=== PATIENT | female | born 1945 | race Caucasian/White ===

== ENCOUNTER 2017-08-28 06:24 | Day surgery (SDC) | payer MEDICARE, MEDICAID ==
[~2017-08-28 06:24] MED LIST: Buffered Lidocaine 0.9% SYRIN* 5 ML/SYR SYRINGE INTRADERM ONE
[2017-08-28] MEDS ORDERED: ceFAZolin 2 GM PREMIX (*) 2 GM/50 ML BAG IVPB ONE (06:30)
[2017-08-28] MEDS ORDERED: Bupivacaine 0.25% SDV* 30 ML ONE (07:20)
[2017-08-28] MEDS ORDERED: Midazolam* 1 MG/ML 2 ML VIAL (2 MG) ONE (07:24)
[2017-08-28] MEDS ORDERED: fentaNYL* 50 MCG/ML 2 ML VIAL (100 MCG VIAL) ONE (07:24)
[2017-08-28] MEDS ORDERED: Lidocaine 2% PF * 5 ML VIAL ONE (07:40)
[2017-08-28] MEDS ORDERED: Propofol* 10 MG/ML 20 ML BTL IV PUSH ONE (07:40)
[2017-08-28] MEDS ORDERED: Naloxone* 0.4 MG/ML 1 ML VIAL IV PRN (08:19)
[2017-08-28 08:46] VITALS: BP 128/66
== END 2017-08-28 09:01 | disposition home or self-care (01) ==
LOC: OREAST 06:24
PROVIDERS: ATTEND Plastic Surgery
DX: M65.322 Trigger finger, left index finger (principal); E11.9 Type 2 diabetes mellitus without complications; Z79.4 Long term (current) use of insulin; Z79.84 Long term (current) use of oral hypoglycemic drugs; I10 Essential (primary) hypertension; E78.5 Hyperlipidemia, unspecified; I25.2 Old myocardial infarction; I25.10 Atherosclerotic heart disease of native coronary artery without angina pectoris; J44.9 Chronic obstructive pulmonary disease, unspecified; Z86.718 Personal history of other venous thrombosis and embolism; Z86.711 Personal history of pulmonary embolism; Z79.82 Long term (current) use of aspirin; Z95.5 Presence of coronary angioplasty implant and graft; D64.9 Anemia, unspecified
CPT/HCPCS: J0690; J2250; J2704; J3010

== ENCOUNTER 2023-06-02 09:40 | Inpatient (IN) ==
[2023-06-02 10:11] LABS: ABS Eosinophils 0.1 10^3/uL (0.0-0.5); ABS Lymphocytes 2.1 10^3/uL (1.0-4.8); ABS Monocytes 0.6 10^3/uL (0.0-0.9); ABS Neutrophils 3.9 10^3/uL (1.5-7.6); ABS Nucleated RBC 0.02 10^3/ul; Eosinophil % 1.8 %; Hematocrit 39.9 % (35-45); Hemoglobin 13.4 g/dL (11.5-14.3); Lymphocyte % 30.3 %; Mean Corpuscular Hemoglobin 29.7 pg (27-33); Mean Corpuscular Hgb Conc 33.6 g/dL (31-36); Mean Corpuscular Volume 88.4 fL (80-97); Mean Platelet Volume 7.7 fL (7.5-11.2); Nucleated Red Blood Cells % 0.2 %/100WBC (0.0-0.8); Platelet Count 226 10^3/uL (150-450); Red Blood Count 4.51 10^6/uL (3.63-4.92); White Blood Count 6.8 10^3/uL (3.8-11.8)
[2023-06-02 10:35] LABS: ALT 15 U/L (7-52); Albumin 4.1 g/dL (3.2-5.2); Albumin/Globulin Ratio 1.2 (1-3); Alkaline Phosphatase 108 U/L (35-149); Anion Gap 13 mmol/L (2-16); Blood Urea Nitrogen 27 mg/dL (6-24); CO2 Carbon Dioxide 24 mmol/L (22-32); Calcium 9.5 mg/dL (8.6-10.3); Chloride 101 mmol/L (101-111); Creatinine, Serum 1.41 mg/dL (0.51-0.95); Globulin 3.5 g/dL (2-4); Glucose 174 mg/dL (70-100); High Sens Troponin Baseline < 3 pg/mL (<15); Sodium 138 mmol/L (135-145); Total Bilirubin 0.6 mg/dL (0.2-1.0); Total Protein 7.6 g/dL (6.4-8.9); eGFR CKD-EPI 38.4 (>60)
[2023-06-02] MEDS ORDERED: Ondansetron 4 mg VIAL 2 MG/ML 2 ml VIAL IV ONE (11:17)
[2023-06-02] MEDS ORDERED: Acetaminophen IV 1 GM/100ML 1,000 MG/100 ML BAG IV ONE ×2 (11:17→19:17)
[2023-06-02] MEDS ORDERED: NS 0.9% 500 ml BAG 500 ML IV ONE (11:17)
[2023-06-02 11:49] LABS: Potassium Redraw 4.1 mmol/L (3.5-5.0)
[2023-06-02] MEDS ORDERED: Iodixanol (CONTRAST) 320 MG/ML 100 ML SDV IV ONE (11:49)
[2023-06-02 11:54] LABS: INR 1.14 (0.83-1.13)
[2023-06-02] MEDS ORDERED: Piperacillin/Tazobac 3.375 BAG 3.375 GM/100 ML BAG IV ONE (20:28)
[2023-06-02] MEDS ORDERED: Ondansetron 4 mg VIAL 2 MG/ML 2 ml VIAL IV PRN (21:23)
[2023-06-02] MEDS ORDERED: Potassium Chlor 20 meq TAB.ER PO PRN (21:28)
[2023-06-02] MEDS ORDERED: Lactated Ringers 1000 ml BAG 1,000 ML IV ONE (21:34)
[2023-06-02] MEDS ORDERED: Enoxaparin 30 MG/0.3 ML SYR SUBCUT SCH (22:00)
[2023-06-02] MEDS ORDERED: Zosyn per Pharmacy NOTE FOLLOW UP SCH (22:00)
[2023-06-02] MEDS: Enoxaparin 30 MG/0.3 ML SYR SUBCUT SCH (22:02)
[2023-06-02] MEDS ORDERED: Dextrose 50% Syringe 50 ml 25 GM/50 ML SYRINGE IV PUSH PRN (22:23)
[2023-06-03] MEDS ORDERED: ZOSYN 3.375 GM Q8H per EXTENDED INFUSION IV SCH (01:00)
[2023-06-03] MEDS: ZOSYN 3.375 GM Q8H per EXTENDED INFUSION IV SCH ×3 (01:24→16:56)
[2023-06-03 07:50] LABS: ABS Eosinophils 0.2 10^3/uL (0.0-0.5); ABS Monocytes 0.3 10^3/uL (0.0-0.9); ABS Neutrophils 3.1 10^3/uL (1.5-7.6); Eosinophil % 3.9 %; Hematocrit 38.8 % (35-45); Hemoglobin 12.9 g/dL (11.5-14.3); Mean Corpuscular Hemoglobin 29.7 pg (27-33); Mean Corpuscular Hgb Conc 33.2 g/dL (31-36); Mean Corpuscular Volume 89.5 fL (80-97); Nucleated Red Blood Cells % 0.1 %/100WBC (0.0-0.8); Platelet Count 173 10^3/uL (150-450); Red Blood Count 4.34 10^6/uL (3.63-4.92); White Blood Count 4.6 10^3/uL (3.8-11.8)
[2023-06-03 08:10] LABS: Creatinine, Serum 1.45 mg/dL (0.51-0.95); Magnesium 1.7 mg/dL (1.9-2.7); Potassium 4.5 mmol/L (3.5-5.0); eGFR CKD-EPI 37.2 (>60)
[2023-06-03] MEDS: Cholecalciferol (VIT D3) 1,000 unit TAB PO SCH (08:46)
[2023-06-03] MEDS: Enoxaparin 30 MG/0.3 ML SYR SUBCUT SCH (20:40)
[2023-06-04] MEDS: ZOSYN 3.375 GM Q8H per EXTENDED INFUSION IV SCH ×3 (02:17→17:39)
[2023-06-04 07:29] LABS: ABS Basophils 0.1 10^3/uL (0.0-0.1); ABS Eosinophils 0.2 10^3/uL (0.0-0.5); ABS Lymphocytes 1.2 10^3/uL (1.0-4.8); ABS Monocytes 0.3 10^3/uL (0.0-0.9); ABS Neutrophils 1.8 10^3/uL (1.5-7.6); ABS Nucleated RBC 0.01 10^3/ul; Hemoglobin 12.1 g/dL (11.5-14.3); Lymphocyte % 32.6 %; Mean Corpuscular Hemoglobin 29.9 pg (27-33); Mean Corpuscular Hgb Conc 33.7 g/dL (31-36); Mean Corpuscular Volume 88.7 fL (80-97); Mean Platelet Volume 7.4 fL (7.5-11.2); Nucleated Red Blood Cells % 0.2 %/100WBC (0.0-0.8); Platelet Count 160 10^3/uL (150-450); Red Blood Count 4.06 10^6/uL (3.63-4.92); Red Cell Distribution Width 13.9 % (12-17); White Blood Count 3.7 10^3/uL (3.8-11.8)
[2023-06-04 07:46] LABS: Calcium 8.8 mg/dL (8.6-10.3); Creatinine, Serum 1.47 mg/dL (0.51-0.95); Magnesium 1.7 mg/dL (1.9-2.7); Phosphorus 3.7 mg/dL (2.5-5.0); Potassium 3.8 mmol/L (3.5-5.0); eGFR CKD-EPI 36.5 (>60)
[2023-06-04] MEDS: Cholecalciferol (VIT D3) 1,000 unit TAB PO SCH (08:09)
[2023-06-04] MEDS ORDERED: Magnesium Sulfate IV 1GM/100ML 1 GM/100 ML BAG IV ONE (10:26)
[2023-06-04] MEDS: Enoxaparin 30 MG/0.3 ML SYR SUBCUT SCH (21:58)
[2023-06-05] MEDS: ZOSYN 3.375 GM Q8H per EXTENDED INFUSION IV SCH ×2 (02:43→13:13)
[2023-06-05] MEDS ORDERED: Lactated Ringers 1000 ml BAG 1,000 ML IV SCH (08:00)
[2023-06-05] MEDS: Cholecalciferol (VIT D3) 1,000 unit TAB PO SCH (09:06)
[2023-06-05 11:00] VITALS: BP 139/74
[2023-06-05] MEDS ORDERED: Amoxicillin/Clavul 875/125 TAB (Augmentin 875 tab) PO ONE (11:47)
== END 2023-06-05 13:20 | disposition home or self-care (01) | DRG 445 ==
LOC: ED 09:40 → SUATTDRO 21:23 → INTOOBSV 21:23 → EDHOLD 21:23 → MEDTELE 23:13
PROVIDERS: ADMIT Internal Medicine; ATTEND Internal Medicine

== ENCOUNTER 2023-11-13 14:35 | Inpatient (IN) ==
[2023-11-13] MEDS: Ondansetron 4 mg VIAL 2 MG/ML 2 ml VIAL IV ONE ×2 (16:55→20:26)
[2023-11-13] MEDS: Acetaminophen IV 1 GM/100ML 1,000 MG/100 ML BAG IV ONE (16:57)
[2023-11-13] MEDS: Lactated Ringers 1000 ml BAG 1,000 ML IV ONE (17:25)
[2023-11-13 17:28] LABS: ABS Eosinophils 0.2 10^3/uL (0.0-0.5); ABS Lymphocytes 2.2 10^3/uL (1.0-4.8); ABS Monocytes 0.6 10^3/uL (0.0-0.9); ABS Neutrophils 3.5 10^3/uL (1.5-7.6); Eosinophil % 2.8 %; Hematocrit 35.9 % (35-45); Hemoglobin 11.7 g/dL (11.5-14.3); Lymphocyte % 33.2 %; Mean Corpuscular Hemoglobin 28.8 pg (27-33); Mean Corpuscular Hgb Conc 32.5 g/dL (31-36); Mean Corpuscular Volume 88.5 fL (80-97); Mean Platelet Volume 7.8 fL (7.5-11.2); Platelet Count 232 10^3/uL (150-450); Red Blood Count 4.06 10^6/uL (3.63-4.92); Red Cell Distribution Width 15.6 % (12-17); White Blood Count 6.6 10^3/uL (3.8-11.8)
[2023-11-13 17:31] LABS: Albumin 3.8 g/dL (3.2-5.2); Albumin/Globulin Ratio 1.4 (1-3); C Reactive Protein 1.52 mg/L (<8.01); Calcium 9.6 mg/dL (8.6-10.3); Creatinine, Serum 1.37 mg/dL (0.51-0.95); Globulin 2.7 g/dL (2-4); Potassium 4.2 mmol/L (3.5-5.0); Total Bilirubin 0.3 mg/dL (0.2-1.0); Total Protein 6.5 g/dL (6.4-8.9); eGFR CKD-EPI 39.8 (>60)
[2023-11-13 18:36] LABS: Urine Appearance Turbid; Urine Bilirubin Negative (Negative); Urine Blood 3+ (Negative); Urine Color Light-Yellow; Urine Glucose Negative (Negative); Urine Ketones Negative (Negative); Urine Nitrite Negative (Negative); Urine Protein Trace (Negative); Urine Specific Gravity 1.018 (1.002-1.030); Urine Urobilinogen Negative (Negative); Urine pH 5.5 (5.0-8.0)
[2023-11-13 18:42] LABS: Urine Bacteria Absent /HPF (Absent); Urine Red Blood Cell 3+(>10/hpf) /HPF (0-Trace); Urine Squamous Epithelial Cell Present /HPF (Absent); Urine White Blood Cell 2+(11-20/hpf) /HPF (0-Trace)
[2023-11-13] MEDS: Magnesium Sulfate 2 gm BAG 2 GM/50 ML BAG IVPB ONE (19:11)
[2023-11-13] MEDS: Piperacillin/Tazobac 3.375 BAG 3.375 GM/100 ML BAG IV ONE (20:26)
[2023-11-13] MEDS: Morphine 2 MG/ML SYRINGE IV ONE (20:27)
[2023-11-13] MEDS ORDERED: Polyethylene Glycol 3350 17 GM PACKET PO PRN (20:57)
[2023-11-13] MEDS: Lactated Ringers 1000 ml BAG 1,000 ML IV SCH (22:54)
[2023-11-13] MEDS: Heparin 5000 UNITS/ML 1 mL VIAL SUBCUT SCH (23:19)
[2023-11-13] MEDS: Heparin 5000 UNITS/ML 1 mL VIAL SUBCUT ONE (23:20)
[2023-11-14] MEDS: cefTRIAXone 1 gm/50 mL D5W 1 GM/50 ML BAG IV SCH (02:52)
[2023-11-14] MEDS ORDERED: cefTRIAXone 1 gm/50 mL D5W 1 GM/50 ML BAG IV SCH (03:00)
[2023-11-14 06:10] LABS: ABS Eosinophils 0.1 10^3/uL (0.0-0.5); ABS Lymphocytes 0.3 10^3/uL (1.0-4.8); ABS Monocytes 0.2 10^3/uL (0.0-0.9); ABS Neutrophils 2.9 10^3/uL (1.5-7.6); Eosinophil % 1.9 %; Hematocrit 28.8 % (35-45); Hemoglobin 9.9 g/dL (11.5-14.3); Lymphocyte % 9.4 %; Mean Corpuscular Hemoglobin 30.4 pg (27-33); Mean Corpuscular Hgb Conc 34.5 g/dL (31-36); Mean Platelet Volume 7.6 fL (7.5-11.2); Nucleated Red Blood Cells % 0.1 %/100WBC (0.0-0.8); Platelet Count 148 10^3/uL (150-450); Red Blood Count 3.27 10^6/uL (3.63-4.92); Red Cell Distribution Width 14.7 % (12-17); White Blood Count 3.6 10^3/uL (3.8-11.8)
[2023-11-14 06:52] LABS: Calcium 8.6 mg/dL (8.6-10.3); Creatinine, Serum 1.27 mg/dL (0.51-0.95); Magnesium 1.8 mg/dL (1.9-2.7); Potassium 3.8 mmol/L (3.5-5.0); eGFR CKD-EPI 43.6 (>60)
[2023-11-14] MEDS: Ondansetron 4 mg VIAL 2 MG/ML 2 ml VIAL IV PRN (08:11)
[2023-11-14] MEDS: Morphine 2 MG/ML SYRINGE IV PRN (08:11)
[2023-11-14] MEDS: Cholecalciferol (VIT D3) 1,000 unit TAB PO SCH (08:18)
[2023-11-14] MEDS ORDERED: Succinylcholine 200 mg VIAL 20 mg/ml 10 ml VIAL (200 mg) ONE (15:44)
[2023-11-14] MEDS ORDERED: Midazolam 2 mg/2 ml VIAL 1 mg/ml 2 ml VIAL (2 mg) ONE (15:44)
[2023-11-14] MEDS ORDERED: Propofol 10 MG/ML 20 ML BTL ONE (15:44)
[2023-11-14] MEDS ORDERED: Dexamethasone IV 4 MG/ML VIAL 1 ml VIAL ONE ×2 (15:44→17:34)
[2023-11-14] MEDS ORDERED: Rocuronium 50 mg VIAL 10 mg/ml 5 ml VIAL (50 mg) ONE (15:44)
[2023-11-14] MEDS ORDERED: Ondansetron 4 mg VIAL 2 MG/ML 2 ml VIAL ONE ×2 (15:44→17:32)
[2023-11-14] MEDS ORDERED: Lidocaine 2% PF 5 ML VIAL ONE (15:44)
[2023-11-14] MEDS ORDERED: Lidocaine 2% JELLY 10 ML JELLY ONE (17:02)
[2023-11-14] MEDS ORDERED: fentaNYL 100 mcg/2 ml 50 MCG/ML VIAL ONE (17:17)
[2023-11-15] MEDS: Senna TAB 8.6 mg TAB PO PRN (08:08)
[2023-11-15 08:52] LABS: ABS Eosinophils 0.1 10^3/uL (0.0-0.5); ABS Lymphocytes 1.3 10^3/uL (1.0-4.8); ABS Monocytes 0.5 10^3/uL (0.0-0.9); ABS Neutrophils 4.8 10^3/uL (1.5-7.6); ABS Nucleated RBC 0.01 10^3/ul; Eosinophil % 1.2 %; Hematocrit 32.9 % (35-45); Hemoglobin 10.4 g/dL (11.5-14.3); Lymphocyte % 19.8 %; Mean Corpuscular Hemoglobin 29.1 pg (27-33); Mean Corpuscular Hgb Conc 31.6 g/dL (31-36); Mean Corpuscular Volume 92.2 fL (80-97); Mean Platelet Volume 8.6 fL (7.5-11.2); Nucleated Red Blood Cells % 0.2 %/100WBC (0.0-0.8); Platelet Count 151 10^3/uL (150-450); Red Blood Count 3.57 10^6/uL (3.63-4.92); Red Cell Distribution Width 15.6 % (12-17); White Blood Count 6.7 10^3/uL (3.8-11.8)
[2023-11-15 09:23] LABS: ALT 104 U/L (7-52); Albumin 3.1 g/dL (3.2-5.2); Albumin/Globulin Ratio 1.3 (1-3); Alkaline Phosphatase 119 U/L (35-149); Anion Gap 11 mmol/L (2-16); Blood Urea Nitrogen 15 mg/dL (6-24); CO2 Carbon Dioxide 23 mmol/L (22-32); Calcium 8.5 mg/dL (8.6-10.3); Chloride 105 mmol/L (101-111); Creatinine, Serum 1.29 mg/dL (0.51-0.95); Globulin 2.4 g/dL (2-4); Glucose 75 mg/dL (70-100); Sodium 139 mmol/L (135-145); Total Bilirubin 0.3 mg/dL (0.2-1.0); Total Protein 5.5 g/dL (6.4-8.9); eGFR CKD-EPI 42.7 (>60)
[2023-11-15 11:11] LABS: Potassium Redraw 4.2 mmol/L (3.5-5.0)
[2023-11-15] MEDS: Nystatin TOP POWDER 15 GM BTL TOPICAL SCH (20:21)
[2023-11-16] MEDS: NS 0.9% 1000 ml BAG 1,000 ML IV SCH ×2 (08:59→09:30)
[2023-11-16] MEDS ORDERED: Cetirizine 5 mg CHEW TAB PO PRN (16:43)
[2023-11-17 09:14] LABS: Albumin 3.1 g/dL (3.2-5.2); Albumin/Globulin Ratio 1.4 (1-3); Calcium 8.3 mg/dL (8.6-10.3); Creatinine, Serum 1.35 mg/dL (0.51-0.95); Globulin 2.2 g/dL (2-4); Magnesium 1.3 mg/dL (1.9-2.7); Potassium 4.1 mmol/L (3.5-5.0); Total Bilirubin 0.3 mg/dL (0.2-1.0); Total Protein 5.3 g/dL (6.4-8.9); eGFR CKD-EPI 40.5 (>60)
[2023-11-17 09:29] VITALS: BP 128/72
[2023-11-17] MEDS: Magnesium Sulf 4 GM/100 ML IV 4,000 MG/100 ML BAG IVPB ONE (11:16)
== END 2023-11-17 13:55 | disposition home health service (06) | DRG 660 ==
LOC: ED 14:35 → EDHOLD 14:35 → SUATTDRO 20:20 → MED 21:29 → SUATTDRO 11-15 17:17
PROVIDERS: ADMIT Hospitalist; ATTEND Internal Medicine

== ENCOUNTER 2024-03-05 23:02 | Observation (INO) ==
[2024-03-05 23:48] LABS: INR 1.11 (0.85-1.14)
[2024-03-06 00:18] LABS: Albumin/Globulin Ratio 1.5 (1-3); Calcium 9.7 mg/dL (8.6-10.3); Creatinine, Serum 1.41 mg/dL (0.51-0.95); Globulin 2.6 g/dL (2-4); Potassium 4.9 mmol/L (3.5-5.0); Total Bilirubin 0.3 mg/dL (0.2-1.0); Total Protein 6.6 g/dL (6.4-8.9); eGFR CKD-EPI 38.4 (>60)
[2024-03-06 01:46] LABS: ABS Eosinophils 0.2 10^3/uL (0.0-0.5); ABS Lymphocytes 2.2 10^3/uL (1.0-4.8); ABS Monocytes 0.5 10^3/uL (0.0-0.9); ABS Neutrophils 2.7 10^3/uL (1.5-7.6); ABS Nucleated RBC 0.01 10^3/ul; Eosinophil % 3.4 %; Hematocrit 33.3 % (35-45); Lymphocyte % 38.9 %; Mean Corpuscular Hemoglobin 27.8 pg (27-33); Mean Corpuscular Volume 84.4 fL (80-97); Mean Platelet Volume 7.7 fL (7.5-11.2); Nucleated Red Blood Cells % 0.2 %/100WBC (0.0-0.8); Platelet Count 186 10^3/uL (150-450); Red Blood Count 3.94 10^6/uL (3.63-4.92); Red Cell Distribution Width 16.3 % (12-17); White Blood Count 5.7 10^3/uL (3.8-11.8)
[2024-03-06 02:07] LABS: High Sensitivity Troponin 1 Hr 7 pg/mL (<15)
[2024-03-06 03:44] LABS: Magnesium 1.4 mg/dL (1.9-2.7)
[2024-03-06 04:51] LABS: TSH Ultra Thyroid Stim Horm 6.75 mcIU/mL (0.34-5.60)
[2024-03-06] MEDS ORDERED: Dextrose 50% Syringe 50 ml 25 GM/50 ML SYRINGE IV PUSH PRN (04:51)
[2024-03-06] MEDS ORDERED: Sulfur Hexaflouride MICROSPHR 25 MG VIAL IV PRN ×2 (04:55→04:56)
[2024-03-06 05:12] LABS: ABS Eosinophils 0.2 10^3/uL (0.0-0.5); ABS Lymphocytes 2.4 10^3/uL (1.0-4.8); ABS Monocytes 0.5 10^3/uL (0.0-0.9); ABS Neutrophils 2.2 10^3/uL (1.5-7.6); Eosinophil % 3.6 %; Hemoglobin 10.5 g/dL (11.5-14.3); Lymphocyte % 44.9 %; Mean Corpuscular Hemoglobin 27.3 pg (27-33); Mean Corpuscular Hgb Conc 32.7 g/dL (31-36); Mean Corpuscular Volume 83.5 fL (80-97); Mean Platelet Volume 7.6 fL (7.5-11.2); Nucleated Red Blood Cells % 0.1 %/100WBC (0.0-0.8); Platelet Count 191 10^3/uL (150-450); Red Blood Count 3.83 10^6/uL (3.63-4.92); White Blood Count 5.3 10^3/uL (3.8-11.8)
[2024-03-06 05:52] LABS: Calcium 9.4 mg/dL (8.6-10.3); Creatinine, Serum 1.36 mg/dL (0.51-0.95); Magnesium 1.3 mg/dL (1.9-2.7); Potassium 4.6 mmol/L (3.5-5.0); eGFR CKD-EPI 40.1 (>60)
[2024-03-06 06:14] LABS: Ferritin 4.9 ng/mL (11-307)
[2024-03-06 06:18] LABS: Folate 19.66 ng/mL (5.90-24.80)
[2024-03-06] MEDS: Magnesium Sulf 4 GM/100 ML IV 4,000 MG/100 ML BAG IVPB ONE (06:20)
[2024-03-06 09:06] LABS: Free T4 0.86 ng/dL (0.61-1.12)
[2024-03-06] MEDS: Cholecalciferol (VIT D3) 1,000 unit TAB PO SCH (09:27)
[2024-03-06] MEDS: Heparin 5000 UNITS/ML 1 mL VIAL SUBCUT SCH (09:29)
[2024-03-06] MEDS: Cyanocobalamin INJ 1,000 MCG/ML VIAL 1 ML VIAL IM ONE ×2 (09:33)
[2024-03-06] MEDS: Ferric Gluconate IV 250 MG in NS 0.9% 250 ml 200 ML IVPB SCH (09:33)
[2024-03-06 10:15] VITALS: BP 149/63
[2024-03-06] MEDS: Ondansetron ODT 4 mg TAB 4 MG TAB PO PRN (10:57)
== END 2024-03-06 11:18 | disposition left against medical advice (07) ==
LOC: EDHOLD 23:02 → ED 23:02 → MEDTELE 03-06 08:01
PROVIDERS: ADMIT Internal Medicine; ATTEND Internal Medicine